=== PATIENT | female | born 1985 | race Caucasian/White ===

== ENCOUNTER → 2022-10-16 06:24 | Outpatient (CLI) | payer BC, SELFPAY ==
[2022-10-16 18:41] LABS: Basophils # 0.1 K/mm3 (0-0.2); Basophils % 0.9 % (0.1-2.0); Chloride 101 mmol/L (98-107); Eosinophils # 0.3 K/mm3 (0.0-0.4); Hematocrit 46.4 % (37.0-47.0); Hemoglobin 15.1 g/dL (12.2-16.2); Lymphocytes # 2.1 K/mm3 (0.7-4.5); Lymphocytes % 23.2 % (10-50); Mean Corpuscular HGB Conc 32.5 g/dL (31.8-35.4); Mean Corpuscular Hemoglobin 31.5 pg (27.0-31.2); Mean Corpuscular Volume 96.7 fl (81-99); Mean Platelet Volume 9.4 fl (7.4-10.4); Monocytes # 0.4 K/mm3 (0.1-1.0); Monocytes % 4.2 % (1.7-9.3); Neutrophils # 6.1 K/mm3 (1.8-7.8); Neutrophils % 68.7 % (37.0-80.0); Platelet Count 234 K/mm3 (142-424); Potassium 4.4 mmoL/L (3.5-5.1); Red Cell Distribution Width 13.6 % (11.5-17.5); Sodium 132 mmol/L (136-145); White Blood Count 8.8 K/mm3 (4.8-10.8)
[2022-10-16 18:43] LABS: Blood Urea Nitrogen 14 mg/dl (7-17); Estimated Glomerular Filt Rate 111 ml/min (>60); GFR (African American) 135 ML/MIN (>60)
[2022-10-16 18:44] LABS: Alanine Aminotransferase 21 U/L (12-78); Albumin Level 3.9 g/dl (3.5-5.0); Albumin/Globulin Ratio 1.7 (1.1-1.8); Alkaline Phosphatase 83 U/L (38-126); Anion Gap 13.4 mEq/L (5-15); Aspartate Amino Transferase 20 U/L (14-36); Bilirubin,Total 0.3 mg/dl (0.2-1.3); Calcium 8.4 mg/dl (8.4-10.2); Carbon Dioxide 22 mmol/L (22.0-30.0); Chol/HDL Ratio 6.1 (1-3.5); Cholesterol 170 mg/dl (140-200); Globulin 2.3 g/dL (1.3-3.2); Glucose 355 mg/dl (74-100); HDL Cholesterol 28 mg/dl (40-60); Total Protein,Serum 6.2 g/dl (6.3-8.2)
[2022-10-16 18:46] LABS: Triglycerides 521 mg/dl (30-150)
[2022-10-16 18:55] LABS: Direct LDL Cholesterol 48.91 mg/dL (100-129)
[2022-10-16 19:14] LABS: Thyroid Stimulating Hormone 0.22 uIU/mL (0.465-4.68)
== END ==
LOC: LAB.DROPOF 10-17 06:25
PROVIDERS: PCP Nurse Practitioner; Visit Provider Nurse Practitioner
DX: E11.9 Type 2 diabetes mellitus without complications (principal); I10 Essential (primary) hypertension
CPT/HCPCS: 80053; 80061; 84443; 85025

== ENCOUNTER → 2022-11-18 23:00 | Outpatient (CLI) | payer BC, SELFPAY ==
[2022-11-18 19:28] LABS: Coronavirus 19, PCR Not Detected (NotDetected); Influenza A, PCR Not Detected (NotDetected); Influenza B, PCR Not Detected (NotDetected)
[2022-11-18 20:04] LABS: Basophils # 0.1 K/mm3 (0-0.2); Basophils % 0.5 % (0.1-2.0); Eosinophils # 0.3 K/mm3 (0.0-0.4); Eosinophils % 2.2 % (0.1-12.0); Hematocrit 49.4 % (37.0-47.0); Hemoglobin 16.7 g/dL (12.2-16.2); Lymphocytes # 2.4 K/mm3 (0.7-4.5); Lymphocytes % 18.7 % (10-50); Mean Corpuscular HGB Conc 33.9 g/dL (31.8-35.4); Mean Corpuscular Hemoglobin 31.4 pg (27.0-31.2); Mean Corpuscular Volume 92.8 fl (81-99); Mean Platelet Volume 8.7 fl (7.4-10.4); Monocytes # 0.5 K/mm3 (0.1-1.0); Monocytes % 3.9 % (1.7-9.3); Neutrophils # 9.5 K/mm3 (1.8-7.8); Neutrophils % 74.8 % (37.0-80.0); Platelet Count 310 K/mm3 (142-424); Red Blood Count 5.32 M/mm3 (4.20-5.40); Red Cell Distribution Width 13.5 % (11.5-17.5); White Blood Count 12.7 K/mm3 (4.8-10.8)
== END ==
PROVIDERS: PCP Nurse Practitioner; Visit Provider Nurse Practitioner
DX: J06.9 Acute upper respiratory infection, unspecified (principal); K52.9 Noninfective gastroenteritis and colitis, unspecified
CPT/HCPCS: 85025; C9803; U0003; U0005

== ENCOUNTER → 2023-01-06 08:57 | Outpatient (CLI) | payer BC, SELFPAY ==
[2023-01-06 19:17] LABS: Chloride 103 mmol/L (98-107); Potassium 4.2 mmoL/L (3.5-5.1); Sodium 133 mmol/L (136-145)
[2023-01-06 19:20] LABS: Alanine Aminotransferase 23 U/L (12-78); Albumin Level 4.2 g/dl (3.5-5.0); Albumin/Globulin Ratio 1.8 (1.1-1.8); Alkaline Phosphatase 72 U/L (38-126); Anion Gap 10.2 mEq/L (5-15); Aspartate Amino Transferase 24 U/L (14-36); Bilirubin,Total 0.6 mg/dl (0.2-1.3); Blood Urea Nitrogen 9 mg/dl (7-17); Calcium 8.9 mg/dl (8.4-10.2); Carbon Dioxide 24 mmol/L (22.0-30.0); Estimated Glomerular Filt Rate 111 ml/min (>60); GFR (African American) 135 ML/MIN (>60); Globulin 2.4 g/dL (1.3-3.2); Glucose 169 mg/dl (74-100); Total Protein,Serum 6.6 g/dl (6.3-8.2)
[2023-01-06 20:51] LABS: Creatinine,Urine Random 68 mg/dL (Not Estab.)
[2023-01-06 20:53] LABS: Microalbumin/Creatinine Ratio 17.5
== END ==
LOC: LAB.DROPOF 01-07 06:58
PROVIDERS: PCP Nurse Practitioner; Visit Provider Nurse Practitioner
DX: E11.9 Type 2 diabetes mellitus without complications (principal)
CPT/HCPCS: 80053; 82043; 82570

== ENCOUNTER 2023-11-04 20:53 | Outpatient (CLI) | payer BC, SELFPAY ==
[2023-11-04 18:30] LABS: Basophils # 0.2 K/mm3 (0-0.2); Basophils % 2.9 % (0.1-2.0); Eosinophils # 0.3 K/mm3 (0.0-0.4); Eosinophils % 4.7 % (0.1-12.0); Hematocrit 49.2 % (37.0-47.0); Hemoglobin 16.7 g/dL (12.2-16.2); Lymphocytes # 1.6 K/mm3 (0.7-4.5); Lymphocytes % 25.5 % (10-50); Mean Corpuscular Hemoglobin 33.9 pg (27.0-31.2); Mean Corpuscular Volume 99.6 fl (81-99); Mean Platelet Volume 10.9 fl (7.4-10.4); Monocytes # 0.4 K/mm3 (0.1-1.0); Monocytes % 5.6 % (1.7-9.3); Neutrophils # 3.8 K/mm3 (1.8-7.8); Neutrophils % 61.3 % (37.0-80.0); Platelet Count 107 K/mm3 (142-424); Red Blood Count 4.93 M/mm3 (4.20-5.40); Red Cell Distribution Width 13.1 % (11.5-17.5); White Blood Count 6.2 K/mm3 (4.8-10.8)
[2023-11-04 19:52] LABS: Chloride 104 mmol/L (98-107); Potassium 4.3 mmoL/L (3.5-5.1); Sodium 137 mmol/L (136-145)
[2023-11-04 19:55] LABS: Alanine Aminotransferase 18 U/L (12-78); Albumin Level 4.1 g/dl (3.5-5.0); Albumin/Globulin Ratio 1.8 (1.1-1.8); Alkaline Phosphatase 56 U/L (38-126); Anion Gap 11.3 mEq/L (5-15); Aspartate Amino Transferase 20 U/L (14-36); Bilirubin,Total 0.4 mg/dl (0.2-1.3); Blood Urea Nitrogen 9 mg/dl (7-17); Carbon Dioxide 26 mmol/L (22.0-30.0); Cholesterol 168 mg/dl (140-200); Estimated Glomerular Filt Rate 93 ml/min (>60); GFR (African American) 112 ML/MIN (>60); Globulin 2.3 g/dL (1.3-3.2); Total Protein,Serum 6.4 g/dl (6.3-8.2); Triglycerides 121 mg/dl (30-150); VLDL Cholesterol 24 mg/dL (0-40)
[2023-11-04 19:56] LABS: Calcium 8.9 mg/dl (8.4-10.2); Chol/HDL Ratio 4.7 (1-3.5); Glucose 103 mg/dl (74-100); HDL Cholesterol 36 mg/dl (40-60)
[2023-11-04 20:09] LABS: Direct LDL Cholesterol 104.76 mg/dL (100-129)
[2023-11-04 20:15] LABS: 25-OH Vitamin D, Total 27.2 ng/mL (30-100)
[2023-11-04 20:25] LABS: Thyroid Stimulating Hormone 0.06 uIU/mL (0.465-4.68)
[2023-11-04 21:23] LABS: Vitamin B12 419 pg/mL (239-931)
[2023-11-04 22:34] LABS: Microalbumin/Creatinine Ratio 156.1
[2023-11-04 22:36] LABS: Creatinine,Urine Random 34 mg/dL (Not Estab.)
== END 2023-11-04 23:59 ==
LOC: LAB.DROPOF 20:53
PROVIDERS: PCP Nurse Practitioner; Visit Provider Nurse Practitioner
DX: E11.9 Type 2 diabetes mellitus without complications (principal); I10 Essential (primary) hypertension; E55.9 Vitamin D deficiency, unspecified; R79.89 Other specified abnormal findings of blood chemistry; E66.9 Obesity, unspecified; Z68.34 Body mass index [BMI] 34.0-34.9, adult
CPT/HCPCS: 80053; 80061; 82043; 82306; 82570; 82607; 84443; 85025

== ENCOUNTER 2024-04-13 11:15 | Outpatient (CLI) | payer BC, SELFPAY ==
[2024-04-13 20:45] LABS: Alanine Aminotransferase 25 U/L (12-78); Albumin/Globulin Ratio 1.7 (1.1-1.8); Alkaline Phosphatase 57 U/L (38-126); Anion Gap 13.4 mEq/L (5-15); Aspartate Amino Transferase 22 U/L (14-36); Bilirubin,Total 0.5 mg/dl (0.2-1.3); Blood Urea Nitrogen 7 mg/dl (7-17); Calcium 9.1 mg/dl (8.4-10.2); Carbon Dioxide 23 mmol/L (22.0-30.0); Chloride 105 mmol/L (98-107); Chol/HDL Ratio 4.1 (1-3.5); Cholesterol 167 mg/dl (140-200); Estimated Glomerular Filt Rate 93 ml/min (>60); GFR (African American) 112 ML/MIN (>60); Globulin 2.3 g/dL (1.3-3.2); Glucose 122 mg/dl (74-100); HDL Cholesterol 41 mg/dl (40-60); Potassium 4.4 mmoL/L (3.5-5.1); Sodium 137 mmol/L (136-145); Total Protein,Serum 6.3 g/dl (6.3-8.2); Triglycerides 112 mg/dl (30-150); VLDL Cholesterol 22 mg/dL (0-40)
[2024-04-13 20:56] LABS: Direct LDL Cholesterol 96.24 mg/dL (100-129)
[2024-04-13 21:13] LABS: Hemoglobin A1C 5.4 % (4.0-6.0)
[2024-04-13 21:44] LABS: 25-OH Vitamin D, Total 59.4 ng/mL (30-100)
== END 2024-04-13 23:59 | disposition home or self-care (01) ==
LOC: LAB.DROPOF 04-14 11:15
PROVIDERS: PCP Nurse Practitioner; Visit Provider Nurse Practitioner
DX: E11.9 Type 2 diabetes mellitus without complications (principal); I10 Essential (primary) hypertension; E66.9 Obesity, unspecified; Z68.33 Body mass index [BMI] 33.0-33.9, adult
CPT/HCPCS: 80053; 80061; 82306; 83036

== ENCOUNTER 2024-10-11 12:08 | Outpatient (CLI) | payer BC, SELFPAY ==
[2024-10-11 19:06] LABS: Creatinine,Urine Random 51 mg/dL (Not Estab.); Microalbumin < 6.000 mg/L (0-16.7)
[2024-10-11 19:33] LABS: Basophils % 0.5 % (0.1-2.0); Eosinophils # 0.3 K/mm3 (0.0-0.4); Eosinophils % 3.2 % (0.1-12.0); Hematocrit 45.9 % (37.0-47.0); Hemoglobin 15.6 g/dL (12.2-16.2); Lymphocytes # 2.4 K/mm3 (0.7-4.5); Lymphocytes % 28.2 % (10-50); Mean Corpuscular Hemoglobin 32.2 pg (27.0-31.2); Mean Corpuscular Volume 94.8 fl (81-99); Mean Platelet Volume 10.3 fl (7.4-10.4); Monocytes # 0.4 K/mm3 (0.1-1.0); Monocytes % 4.9 % (1.7-9.3); Neutrophils # 5.4 K/mm3 (1.8-7.8); Neutrophils % 62.8 % (37.0-80.0); Platelet Count 244 K/mm3 (142-424); Red Blood Count 4.84 M/mm3 (4.20-5.40); Red Cell Distribution Width 12.1 % (11.5-17.5); White Blood Count 8.5 K/mm3 (4.8-10.8)
[2024-10-11 19:51] LABS: Alanine Aminotransferase 23 U/L (12-78); Albumin Level 4.2 g/dl (3.5-5.0); Albumin/Globulin Ratio 2.1 (1.1-1.8); Alkaline Phosphatase 53 U/L (38-126); Aspartate Amino Transferase 21 U/L (14-36); Bilirubin,Total 0.7 mg/dl (0.2-1.3); Blood Urea Nitrogen 10 mg/dl (7-17); Calcium 9.2 mg/dl (8.4-10.2); Carbon Dioxide 26 mmol/L (22.0-30.0); Chloride 104 mmol/L (98-107); Chol/HDL Ratio 3.8 (1-3.5); Cholesterol 175 mg/dl (140-200); Estimated Glomerular Filt Rate 92 ml/min (>60); GFR (African American) 112 ML/MIN (>60); Glucose 129 mg/dl (74-100); HDL Cholesterol 46 mg/dl (40-60); Sodium 136 mmol/L (136-145); Total Protein,Serum 6.2 g/dl (6.3-8.2); Triglycerides 165 mg/dl (30-150); VLDL Cholesterol 33 mg/dL (0-40)
[2024-10-11 20:02] LABS: Direct LDL Cholesterol 95.74 mg/dL (100-129)
[2024-10-11 20:07] LABS: 25-OH Vitamin D, Total 47.6 ng/mL (30-100)
[2024-10-11 20:18] LABS: Hemoglobin A1C 5.3 % (4.0-6.0)
[2024-10-11 20:21] LABS: Thyroid Stimulating Hormone 0.12 uIU/mL (0.465-4.68)
[2024-10-11 20:36] LABS: Anion Gap 10.1 mEq/L (5-15); Potassium 4.1 mmoL/L (3.5-5.1)
[2024-10-11 20:40] LABS: Vitamin B12 390 pg/mL (239-931)
== END 2024-10-11 23:59 | disposition home or self-care (01) ==
LOC: LAB.DROPOF 10-13 12:50
PROVIDERS: PCP Nurse Practitioner; Visit Provider Nurse Practitioner
DX: E03.9 Hypothyroidism, unspecified (principal); I10 Essential (primary) hypertension; F17.210 Nicotine dependence, cigarettes, uncomplicated; E66.9 Obesity, unspecified; Z68.33 Body mass index [BMI] 33.0-33.9, adult; E11.9 Type 2 diabetes mellitus without complications; Z79.85 Long-term (current) use of injectable non-insulin antidiabetic drugs
CPT/HCPCS: 80050; 80053; 80061; 82043; 82306; 82570; 82607; 83036; 84443; 85025

== ENCOUNTER 2025-04-26 14:25 | Outpatient (CLI) | payer BC, SELFPAY ==
[2025-04-26 20:14] LABS: Alanine Aminotransferase 15 U/L (12-78); Albumin Level 4.2 g/dl (3.5-5.0); Albumin/Globulin Ratio 1.8 (1.1-1.8); Alkaline Phosphatase 54 U/L (38-126); Anion Gap 10.7 mEq/L (5-15); Aspartate Amino Transferase 16 U/L (14-36); Bilirubin,Total 0.5 mg/dl (0.2-1.3); Blood Urea Nitrogen 7 mg/dl (7-17); Calcium 9.0 mg/dl (8.4-10.2); Carbon Dioxide 24 mmol/L (22.0-30.0); Chloride 104 mmol/L (98-107); Cholesterol 179 mg/dl (140-200); Creatinine,Serum 0.70 mg/dl (0.52-1.04); Estimated Glomerular Filt Rate 92 ml/min (>60); GFR (African American) 112 ML/MIN (>60); Globulin 2.3 g/dL (1.3-3.2); Glucose 107 mg/dl (74-100); HDL Cholesterol 42 mg/dl (40-60); Potassium 3.7 mmoL/L (3.5-5.1); Sodium 135 mmol/L (136-145); Total Protein,Serum 6.5 g/dl (6.3-8.2); Triglycerides 136 mg/dl (30-150)
[2025-04-26 20:29] LABS: 25-OH Vitamin D, Total 51.1 ng/mL (30-100)
[2025-04-26 21:27] LABS: Hepatitis C Ab Qual. W/ RFX NEGATIVE (Negative)
--- OUTSIDE RECORDS SUMMARY | 2025-04-27 09:45 | XMS_ITS ---
Author Organization Unknown Medications Medication Instructions Effective Dates (start - stop) Status amoxicillin 875 MG / clavula yeni 125 MG Oral Tablet 9660-42-27J93:00:00.000+00:0 0 - Completed - 4512-48-65W13:00 :00.000+00:00 - Completed - 8092-62-44S38:00 :00.000+00:00 - Completed - 6545-55-03B07:00 :00.000+00:00 - Completed - 9615-09-05P22:00 :00.000+00:00 - Completed - 8734-98-15C06:00 :00.000+00:00 - Completed - 8555-88-24E29:00 :00.000+00:00 - Completed - 7047-15-41P71:00 :00.000+00:00 - Completed - 2352-28-99Q22:00 :00.000+00:00 - Completed cefdinir 300 MG Oral Capsule 12-12-19:00:00.000+00:00 - Completed {6 (azithromycin 250 MG Oral Tablet) } Pack 8151-09-13Y84:00:00.000+00:0 0 - Completed fluticasone propionate 0.05 MG/ACTUAT Metered Dose Nasal [place] 9281-00-90V38:00:00.000+00:0 0 - Completed moxifloxacin 5 MG/ML Ophthal layla Solution 6600-21-30R67:00:00.000+00:0 0 - Completed ondansetron 4 MG Oral Tablet 12-11-06:00:00.000+00:00 - Completed losartan potassium 50 MG Ora l Tablet 8432-79-23I30:00:00.000+00:0 0 - Completed losartan potassium 50 MG Ora l Tablet 7803-38-91A80:00:00.000+00:0 0 - Completed hyoscyamine sulfate 0.125 MG Oral Tablet 8196-82-53L67:00:00.000+00:0 0 - Completed losartan potassium 50 MG Ora l Tablet 0449-15-48C04:00:00.000+00:0 0 - Completed losartan potassium 50 MG Ora l Tablet 8629-07-99U83:00:00.000+00:0 0 - Completed losartan potassium 50 MG Ora l Tablet 5481-44-18N81:00:00.000+00:0 0 - Completed Patient Care team information Name Category Status Period Participants - - Proposed period not known -
--- OUTSIDE RECORDS SUMMARY | 2025-04-27 09:45 | XMS_ITS | Clinical Summary ---
Author Organization [facility] Address [address] [place] [address] Phone Care Team Providers Care [facility] Name Role Phone Audra Phillips Primary Care Provider [phone] Allergies No known active allergies Medications * This document contains information received from the source organization and may not represent a complete record from that organization. ibuprofen (ADVIL;MOTRIN) 600 mg Oral Tablet Take 1 Tab by mouth every 6 hours as needed. 40 Tab 2 8 Active Additional Information Patient not taking.Reason: Pt electing to not take the medication, Reported on 01/27/2021 acetaminophen-c odeine (TYLENOL #3) 300-30 mg Oral Tablet Take 1-2 Tabs by mouth every 6 hours as needed for Pain. 24 Tab 8 Active Additional Information Patient not taking.Reason: Therapy Completed, Reported on 01/27/2021 ketorolac (TORADOL) 10 mg Oral Tablet Take 1 Tab by mouth every 8 hours as needed for Pain. 15 Tab 1 Active Surgical History Surgery Date Site/Laterality Comments TUBAL LIGATION CHOLECYSTECTOMY WISDOM TOOTH EXTRACTION ENDOMETRIAL ABLATION 10/06/2018 N/A Hysteroscopy, endometrial ablation with Novasure; Surgeon: Nba Pollard MD; Location: [facility]; Service: Gynecology Medical History Medical History Date Comments Irregular uterine bleeding Family History Relation Name Status Comments Father Alive Mother Alive Social History Tobacco Use Types Packs/Day Years Used Date Smoking Tobacco: Every Day Cigarettes Smokeless Tobacco: Never Alcohol Use Standard Drinks/Week Comments No 0 (1 standard drink = 0.6 oz pur e alcohol) Sexually Active Control Partners Comments Yes Surgical Male TUBAL LIGATION Comments No Sex and Gender Information Value Date Recorded Sex Assigned at Not on file Legal Sex Female 6:56 AM EDT Gender Identity Not on file Sexual Orientation Not on file Obstetrics History Para Term AB IAB SAB Ectopic Multiple Livin g Live Births 4 2 2 2 1 2 2 Date Outcome GA Total Labor Labor/2nd/3rd Weight Sex Type Anes PTL Brandy A1 A5 Name Clin Term CSP Living 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 Living SAB Last Filed Vital Signs Vital Sign Reading Time Taken Comments Blood Pressure 155/104 09/17/2021 10:19 AM EST Pulse 98 09/17/2021 10:19 AM EST Temperature 35.8 C (96.4 F) 09/17/2021 10:19 AM EST Respiratory Rate 16 01/27/2021 6:42 AM EDT Oxygen Saturation 99% 02/04/2021 2:07 PM EDT Inhaled Oxygen Concentration - - Weight 123 kg (271 lb 3.2 oz) 09/17/2021 10:19 A M EST Height 170.2 cm (5' 7 ) 09/17/2021 10:19 AM EST Body Mass Index 42.48 09/17/2021 10:19 AM EST Plan of Treatment Health Maintenance Due Date Last Done Comments Annual Wellness Exam 1986 DTaP/TDaP/Td (5 - Tdap) 1994 03/12/19 88, 12/14/1984, 1983, Additional history exists Hepatitis B Vaccine (1 of 3 - 19+ 3-dose series) 2002 HPV/Pap Cotest 2013 Cervical Cancer Screening 08/23/2021 Pap Smear 08/23/2021 08/23/2018 Breast Cancer Screening 2023 COVID-19 Vaccine ( season) 2024 Influenza Vaccine (#1) 2025 Meningococcal B Vaccine Aged Out No l onger eligible based on patient's age to complete this topic Pneumococcal Vaccine 0-49 Aged Out No longer eligible based on patient's age to complete this topic Procedures Procedure Name Priority Date/Time Associated Diagnosis Comments MYSQL DATABASE DEVELOPER CYTOLOGY REQUEST (PAP ONLY) Routine 08/23/2018 4:35 PM EST Cervical cancer screening from Last 3 Months or Most Recently Relevant to Health Maintenance Results * MYSQL DATABASE DEVELOPER CYTOLOGY REQUEST (PAP ONLY) (08/23/2018 4:35 PM EST) CASE REPORT Gynecologic Cytology Report Case: [id number] Authorizing Provider: Nba Pollard MD Collected: 08/23/2018 1635 Ordering Location: [facility] Received: 08/23/2018 1635 First Screen: Laure Rosenthal CT Specimen: LIQUID-BASED PAP - CERVICAL/ENDOCERV ICAL, Cervix, Endocervical 08/25/2018 2:20 PM EST [facility] PAP FINAL DIAGNOSIS Negative for intraepithelial lesion or malignancy 08/25/2018 2:20 PM EST [facility] at 1420 EST MICROSCOPIC DESCRIPTION Microscopic examination is performed and the findings corroborate the diagnosis. 08/25/2018 2:20 PM EST [facility] PAP SMEAR ADEQUACY Satisfactory for evaluation 08/25/2018 2:20 PM EST [facility] ENDOCERVICAL T-ZONE Transformation zone present 08/25/2018 2:20 PM EST [facility] EMBEDDED IMAGES 8 2:20 PM EST [facility] PAP DISCLAIMER The Pap Smear is a screening test that aids in the detection of cervical cancer and cancer precursors. Both false positive and false negative results can occur. The test should be used at regular intervals, and positive results should be confirmed before definitive therapy. Processed using the ThinPrep Venetian Blind Washer Automated cytology screening device ([employer]). 08/25/2018 2:20 PM EST [facility] Thin Prep ENDOCERVICAL STRUCTURE / Unknown 08/23/2018 4:35 PM EST 08/23/2018 4:35 PM EST us Nba Pollard MD CYTOLOGY ORDERABLES Final R esult [facility] [address] [place] [address] from Last 3 Months or Most Recently Relevant to Health Maintenance Insurance ANTHEM PPO ANTHEM PPO ANTHEM PPO Care Teams [facility]er Relationship Specialty Start Date End Date Audra Phillips [id number] [address] [place] [phone] PCP - General Family Medicine 02/13/17
[2025-04-28 05:53] LABS: Hepatitis B Surface Antigen Negative (Negative)
== END 2025-04-26 23:59 | disposition home or self-care (01) ==
LOC: LAB.DROPOF 04-27 09:43
PROVIDERS: PCP Nurse Practitioner; Visit Provider Nurse Practitioner
DX: E55.9 Vitamin D deficiency, unspecified (principal); E11.9 Type 2 diabetes mellitus without complications; I10 Essential (primary) hypertension; Z11.59 Encounter for screening for other viral diseases
CPT/HCPCS: 80053; 80061; 80074; 82043; 82306; 82570; 87340; 87389